=== PATIENT | male | born 1990 | race Caucasian/White ===

== ENCOUNTER 2018-06-24 15:37 | Emergency (ER) | payer OTHER | END 2018-06-24 17:20 | disposition home or self-care (01) | LOC: ERS 15:37 | DX: M54.5 Low back pain (principal); E66.01 Morbid (severe) obesity due to excess calories; F41.9 Anxiety disorder, unspecified; F32.9 Major depressive disorder, single episode, unspecified | CPT/HCPCS: 99283 ==

== ENCOUNTER 2019-04-14 10:00 | Outpatient (CLI) | payer OTHER ==
--- NOTE | 2019-04-14 11:43 | RAD ---
RIGHT KNEE TWO VIEWS: HISTORY: Disability examination. Right knee pain. FINDINGS: No fracture, dislocation, or bony destruction is seen. No significant osteophytosis or joint space n arrowing is noted. POS: [facility]
--- NOTE | 2019-04-14 11:43 | RAD ---
LEFT ANKLE TWO VIEWS: HISTORY: Disability examination. Left ankle pain. FINDINGS: The ankle mortise is maintained. No fracture, dislocation, or bony destruction is seen. POS: [facility]
--- NOTE | 2019-04-14 11:44 | RAD ---
LUMBAR SPINE TWO VIEWS: HISTORY: Low back pain. Disability exam. FINDINGS: No fracture, subluxation, or bony destruction is seen. POS: [facility]
== END 2019-04-14 10:01 | disposition home or self-care (01) ==
LOC: BICRAD 10:00
PROVIDERS: ATTEND Internal Medicine
DX: Z02.71 Encounter for disability determination (principal)
CPT/HCPCS: 72100

== ENCOUNTER 2021-09-25 17:45 | Emergency (ER) | payer OTHER | END 2021-09-25 19:48 | disposition home or self-care (01) | LOC: ERS 17:45 | DX: U07.1 COVID-19 (principal); Z79.899 Other long term (current) drug therapy | CPT/HCPCS: 71045 ==